=== PATIENT | female | born 1985 | race Caucasian/White ===

== ENCOUNTER 2022-05-15 02:15 | Inpatient (IN) | payer BC ==
[2022-05-15] MEDS ORDERED: PROMETHAZINE HCL 25 MG/1 ML VIAL IVPB ONE (03:14)
[2022-05-15] MEDS ORDERED: BUTORPHANOL TARTRATE 1 MG/ML VIAL IVPB ONE (03:14)
[2022-05-15] MEDS: ELECTROLYTE-148 SOLN 1,000 ML IV SCH ×4 (03:20→17:45)
[2022-05-15 03:24] VITALS: BMI 25.9
[2022-05-15 03:44] LABS: BASO % 0.4 % (0-2.0); EOS % 0.5 % (0-4.5); HEMOGLOBIN 12.5 GM/dL (10.7-15.3); LYMPH % 23.9 % (8-40); MCH 28.7 pg (25.7-33.7); MCHC 33.7 g/dl (32.0-36.0); MEAN CELL VOLUME 85.1 fl (80-96); MEAN PLT VOLUME 11.1 fl (7.5-11.1); MONO % 6.7 % (3.8-10.2); NEUT % 68.5 % (42.8-82.8); PLATELET COUNT 144 10^3/uL (134-434); RBC 4.35 M/mm3 (3.60-5.2); RDW 14.7 % (11.6-15.6); WHITE BLOOD COUNT 9.8 K/mm3 (4.0-10.0)
[2022-05-15 03:51] LABS: INR 0.92 (0.83-1.09); PROTHROMBIN TIME (PATIENT) 10.7 SEC (9.7-13.0)
[2022-05-15 03:53] LABS: ACTIVATED PTT 27.7 SECONDS (25.2-36.5)
[2022-05-15 04:02] LABS: CALCIUM 8.5 mg/dL (8.5-10.1)
[2022-05-15 04:03] LABS: BLOOD UREA NITROGEN 12.5 mg/dL (7-18)
[2022-05-15 04:06] LABS: CREATININE 0.8 mg/dL (0.55-1.3)
[2022-05-15 05:00] LABS: HIV INTERPRETATION NEGATIVE (NEGATIVE)
[2022-05-15] MEDS ORDERED: BUTORPHANOL TARTRATE 2 MG/ML VIAL ONE (05:14)
[2022-05-15] MEDS ORDERED: PROMETHAZINE HCL 25 MG/1 ML VIAL ONE (05:15)
[2022-05-15] MEDS ORDERED: FENTANYL/BUPIVACAINE/NS/PF - PCEA - 50 ML DISP.SYRIN EP ONE ×3 (08:00→17:25)
[2022-05-15] MEDS ORDERED: NALOXONE HCL 0.4 MG/ML VIAL IVPUSH PRN (08:13)
[2022-05-15] MEDS ORDERED: BUPIVACAINE HCL/PF 0.25% (2.5MG/ML) 10 ML VIAL ONE (08:15)
[2022-05-15] MEDS: FENTANYL/BUPIVACAINE/NS/PF - PCEA - 50 ML DISP.SYRIN EP SCH ×3 (08:33→17:30)
[2022-05-15] MEDS ORDERED: OXYTOCIN 30 UNITS in 0.9% NS 30 UNIT/500 ML INFUS.BAG IVPB ONE (10:58)
[2022-05-15] MEDS ORDERED: OXYTOCIN 30 UNITS in 0.9% NS 30 UNIT/500 ML INFUS.BAG IVPB SCH (11:00)
[2022-05-15 13:53] LABS: POC NITRAZINE POS
[2022-05-15] MEDS ORDERED: FENTANYL CITRATE/PF 50 MCG/ML VIAL ONE (20:36)
[2022-05-15] MEDS ORDERED: morphine SULFATE (PF) 1 MG/2 ML SYRINGE ONE ×2 (20:36→20:57)
[2022-05-15] MEDS ORDERED: IBUPROFEN 800 MG/8 ML IJ IVPB PRN (21:59)
[2022-05-15] MEDS ORDERED: METHYLERGONOVINE MALEATE 0.2 MG/1 ML AMP IM PRN (21:59)
[2022-05-15] MEDS: FERROUS SO4 325 MG TABLET (FP) PO SCH (22:15)
[2022-05-15] MEDS ORDERED: IBUPROFEN 800 MG/8 ML IJ IVPB ONE (23:25)
[2022-05-15] MEDS: OXYTOCIN 20 UNITS in 0.9% NS 20 UNIT/1,000 ML INFUS.BAG IV SCH (23:45)
[2022-05-15] MEDS ORDERED: OXYTOCIN 20 UNITS in 0.9% NS 20 UNIT/1,000 ML INFUS.BAG IV ONE (23:47)
[2022-05-16] MEDS: OXYTOCIN 20 UNITS in 0.9% NS 20 UNIT/1,000 ML INFUS.BAG IV SCH (07:02)
[2022-05-16 08:43] LABS: BASO % 0.1 % (0-2.0); HEMATOCRIT 30.8 % (32.4-45.2); HEMOGLOBIN 10.4 GM/dL (10.7-15.3); LYMPH % 10.5 % (8-40); MCH 28.8 pg (25.7-33.7); MCHC 33.7 g/dl (32.0-36.0); MEAN CELL VOLUME 85.4 fl (80-96); MEAN PLT VOLUME 11.2 fl (7.5-11.1); MONO % 3.6 % (3.8-10.2); NEUT % 85.8 % (42.8-82.8); PLATELET COUNT 99 10^3/uL (134-434); RBC 3.61 M/mm3 (3.60-5.2); RDW 14.9 % (11.6-15.6); WHITE BLOOD COUNT 11.6 K/mm3 (4.0-10.0)
[2022-05-16] MEDS ORDERED: oxyCODONE HCL 5 MG TABLET PO PRN ×2 (09:59)
[2022-05-16] MEDS: PRENATAL VITAMINS W/ FOLIC ACID TABLET (FP) PO SCH (11:07)
[2022-05-16] MEDS: SIMETHICONE 80 MG TAB.CHEW (FP) PO PRN ×2 (11:07→22:05)
[2022-05-16] MEDS: IBUPROFEN 600 MG TABLET (FP) PO PRN ×2 (11:07→22:06)
[2022-05-16] MEDS: FERROUS SO4 325 MG TABLET (FP) PO SCH ×2 (11:07→22:05)
[2022-05-16] MEDS: ACETAMINOPHEN 325 MG TABLET (FP) PO PRN (12:45)
[2022-05-16] MEDS ORDERED: BISACODYL 10 MG SUPP.RECT RC PRN (21:59)
[2022-05-16] MEDS: SENNOSIDES/DOCUSATE COMBO (SENNA PLUS) TABLET (UD) PO PRN (22:05)
[2022-05-16 22:07] VITALS: RESP 18
[2022-05-17] MEDS: SIMETHICONE 80 MG TAB.CHEW (FP) PO PRN ×3 (07:38→21:00)
[2022-05-17] MEDS: IBUPROFEN 600 MG TABLET (FP) PO PRN ×3 (07:38→21:00)
[2022-05-17] MEDS: ACETAMINOPHEN 325 MG TABLET (FP) PO PRN (09:05)
[2022-05-17] MEDS: PRENATAL VITAMINS W/ FOLIC ACID TABLET (FP) PO SCH (09:05)
[2022-05-17] MEDS: FERROUS SO4 325 MG TABLET (FP) PO SCH ×2 (09:05→21:00)
[2022-05-17] MEDS: SENNOSIDES/DOCUSATE COMBO (SENNA PLUS) TABLET (UD) PO PRN (20:59)
[2022-05-17] MEDS ORDERED: guaiFENesin/D-METHORPHAN TAB.ER.12H PO PRN (21:52)
[2022-05-18] MEDS: SIMETHICONE 80 MG TAB.CHEW (FP) PO PRN ×2 (06:14→10:18)
[2022-05-18] MEDS: IBUPROFEN 600 MG TABLET (FP) PO PRN (06:14)
[2022-05-18] MEDS: guaiFENesin 200 MG/10 ML 10 ML UNIT-DOSE CUPS PO PRN ×2 (06:15→10:19)
[2022-05-18] MEDS: FERROUS SO4 325 MG TABLET (FP) PO SCH (10:18)
[2022-05-18] MEDS: PRENATAL VITAMINS W/ FOLIC ACID TABLET (FP) PO SCH (10:18)
[2022-05-18 10:28] VITALS: BP 113/67; PULSE 70; TEMP 98.6
== END 2022-05-18 12:40 | disposition home or self-care (01) | DRG 788 ==
LOC: JDEL 02:15 → JLDR 02:55 → J3W 05-16 00:28
PROVIDERS: ADMIT Obstetrics & Gynecology; ATTEND Obstetrics & Gynecology
PROC: 10D00Z1 Extraction of Products of Conception, Low, Open Approach (ICD-10-PCS; principal; 2022-05-15)
DX: O42.02 Full-term premature rupture of membranes, onset of labor within 24 hours of rupture (principal); O76 Abnormality in fetal heart rate and rhythm complicating labor and delivery; O62.9 Abnormality of forces of labor, unspecified; O69.89X0 Labor and delivery complicated by other cord complications, not applicable or unspecified; Z3A.40 40 weeks gestation of pregnancy; Z37.0 Single live birth
CPT/HCPCS: 36415; 80048; 83986-QW; 85025; 85610; 85730; 86780; 86850; 86900; 86901; 87389; 88307-TC; 94010; C9803-CS; U0003; U0005